=== PATIENT | male | born 1985 | race Caucasian/White ===

== ENCOUNTER 2016-05-01 10:15 | Emergency (ER) | payer SELFPAY ==
--- NOTE | 2016-05-01 12:30 | UC ---
FLU HPI - HPI Summary HPI Summary: GIRLFRIEND AND CHILD HAVE HAD FLU AND PNEUMONIA FOR FOUR DAYS. YESTERDAY BEGAN FEELING FEVER AND COUGH AND MUSCLE ACHES. - History of Current Complaint Chief Complaint: UCRespiratory Stated Complaint: FEVER COUGH SOB Time Seen by Provider: 05/01/16 10:49 Hx Obtained From: Patient Onset/Duration: Sudden Onset, Lasting Days, Still Present Severity Currently: Moderate Severity Initially: Moderate Associated Signs & Symptoms: Positive: Fever, F/C, Myalgia, Cough, Nasal Congestion Related Hx: Possible Flu/Infectious Exposure - Allergy/Home Medications Allergies/Adverse Reactions: Allergies Allergy/AdvReac Type Severity Reaction Status Date / Time No Known Allergies Allergy Verified 05/01/16 10:51 PMH/Surg Hx/FS Hx/Imm Hx Previously Healthy: Yes Endocrine History Of: Denies: Diabetes, Thyroid Disease Cardiovascular History Of: Denies: Cardiac Disorders, Hypertension Respiratory History Of: Denies: COPD Comment Only: Asthma - NO meds GI/ History Of: Denies: Ulcer - Surgical History Surgical History: None - Family History Known Family History: Positive: Other - GIRLFRIEND AND CHILD HAVE INFLUENZA Negative: Respiratory Disease - Social History Occupation: Employed Full-time Lives: With Family Alcohol Use: Weekly Substance Use Type: None Smoking Status (MU): Heavy Every Day Tobacco Smoker Amount Used/How Often: 1 pck per day Cessation Counseling: Patient Advised to Stop Review of Systems Constitutional: Fever, Chills Skin: Negative Eyes: Negative ENT: Negative Respiratory: Negative Cardiovascular: Negative Gastrointestinal: Negative Genitourinary: Negative Motor: Negative Neurovascular: Negative Musculoskeletal: Negative Neurological: Negative Psychological: Negative All Other Systems Reviewed And Are Negative: Yes Physical Exam Triage Information Reviewed: Yes Appearance: Well-Appearing, Well-Nourished, Pain Distress Vital Signs: Initial Vital Signs Temp 98.0 F 05/01/16 10:44 Pulse 106 05/01/16 10:44 Resp 20 05/01/16 10:44 BP 134/76 05/01/16 10:44 Pulse Ox 97 05/01/16 10:44 Vital Signs Reviewed: Yes Eye Exam: Normal ENT Exam: Normal ENT: Positive: Pharynx normal, Nasal congestion, TM dull Dental Exam: Normal Neck exam: Normal Neck: Positive: Supple, Nontender, No Lymphadenopathy Respiratory Exam: Normal Respiratory: Positive: Chest non-tender, Lungs clear, Normal breath sounds, No respiratory distress, No accessory muscle use Cardiovascular Exam: Normal Cardiovascular: Positive: RRR, No Murmur, Pulses Normal, Brisk Capillary Refill Abdominal Exam: Normal Abdomen Description: Positive: Nontender, No Organomegaly, Soft Musculoskeletal Exam: Normal Musculoskeletal: Positive: Strength Intact, ROM Intact Neurological Exam: Normal Psychological Exam: Normal Psychological: Positive: Normal Response To Family Skin Exam: Normal Flu Course/Dx - Differential Dx/Diagnosis Differential Diagnosis/HQI/PQRI: Influenza, Upper Respiratory Infection Provider Diagnoses: INFLUENZA Discharge - Discharge Plan Condition: Stable Disposition: HOME Prescriptions: Oseltamivir CAP* [Tamiflu CAP*] 75 mg PO BID #10 cap Patient Education Materials: Influenza (ED) Forms: *Work Release Referrals: [facility] [Outside] No Primary Care Phys,NOPCP [Primary Care Provider] -
== END 2016-05-01 12:26 | disposition home or self-care (01) ==
LOC: UCEAST 10:15
DX: J11.1 Influenza due to unidentified influenza virus with other respiratory manifestations (principal); F17.210 Nicotine dependence, cigarettes, uncomplicated
CPT/HCPCS: 87502; 99202; G0463

== ENCOUNTER 2017-06-28 08:04 | Emergency (ER) | payer SELFPAY ==
[2017-06-28 08:16] VITALS: BP 146/81
--- NOTE | 2017-06-28 08:52 | RAD ---
HISTORY: Right lateral ankle pain, inversion injury COMPARISONS: None VIEWS: 3, Frontal, lateral, and oblique views of the right ankle FINDINGS: BONE DENSITY: Normal. BONES: There is no displaced fracture. JOINTS: There is no arthropathy. ALIGNMENT: There is no dislocation. SOFT TISSUES: There is circumferential soft tissue swelling. OTHER FINDINGS: None. IMPRESSION: SOFT TISSUE SWELLING. NO ACUTE OSSEOUS INJURY. IF SYMPTOMS PERSIST, RECOMMEND REPEAT IMAGING.
--- NOTE | 2017-06-28 12:07 | UC ---
Saritha Reyes Emily, scribed for Lurdes Mejia DO on 06/28/17 at 0827 . Lower Extremity/Ankle HPI - HPI Summary HPI Summary: This patient is a 31 year old M presenting to [facility] with a chief complaint of R ankle pain that began yesterday. Pt reports rolling his ankle while playing soccer with his children yesterday. The patient rates the pain 6/ 10 in severity. Symptoms aggravated by ambulation. Symptoms alleviated by nothing. Patient denies numbness, weakness, tingling, CP, SOB, rash, and skin diaphoresis. - History of Current Complaint Chief Complaint: UCLowerExtremity Stated Complaint: ANKLE INJURY Time Seen by Provider: 06/28/17 08:20 Hx Obtained From: Patient Onset/Duration: Sudden Onset, Lasting Days, Still Present Severity Initially: Moderate Severity Currently: Moderate Pain Intensity: 6 Pain Scale Used: 0-10 Numeric Aggravating Factor(s): Ambulation Alleviating Factor(s): Nothing Able to Bear Weight: Yes - Allergies/Home Medications Allergies/Adverse Reactions: Allergies Allergy/AdvReac Type Severity Reaction Status Date / Time No Known Allergies Allergy Verified 06/28/17 08:16 Home Medications: Home Medications NK [No Home Medications Reported] 06/28/17 [History Confirmed 06/28/17] PMH/Surg Hx/FS Hx/Imm Hx Previously Healthy: Yes Endocrine History: Other Other Endocrine History: Negative diabetes Cardiovascular History: Other Other Cardiovascular History: Negative HTN - Surgical History Surgical History: None - Family History Known Family History: Positive: Hypertension Negative: Respiratory Disease - Social History Occupation: Unemployed Lives: With Family Alcohol Use: None Substance Use Type: None Smoking Status (MU): Heavy Every Day Tobacco Smoker Amount Used/How Often: 1/2 pck per day Review of Systems Skin: Other - Negative rash and diaphoresis Respiratory: Other - Negative SOB Cardiovascular: Other - Negative CP Musculoskeletal: Other: - Positive R ankle pain Neurological: Other - Negative numbness, weakness, and tingling All Other Systems Reviewed And Are Negative: Yes Physical Exam - Summary Physical Exam Summary: Appearance: Well-Appearing, No Pain Distress, Well-Nourished Eyes: conjunctiva clear, no discharge ENT: Hearing grossly normal, no muffled/hoarse voice. Hearing grossly normal, normal voice. Neck: Normal, Supple Respiratory/Lung Sounds: Lungs clear, Normal breath sounds, No respiratory distress, No accessory muscle use Cardiovascular: RRR, No murmur Abdomen (if she checks): Nontender, Soft, no guarding, not distended Bowel Sounds (if she checks): Present Musculoskeletal: Some swelling over lateral malleolus, tender over the posterior , inferior, and anterior ligaments of the lateral malleolus. Neurological: Alert, muscle tone normal Psychiatric: Normal, age appropriate behavior Skin: Normal, Warm, Dry, Normal color Triage Information Reviewed: Yes Vital Signs: Initial Vital Signs Temp 98.8 F 06/28/17 08:10 Pulse 79 06/28/17 08:10 Resp 16 06/28/17 08:10 BP 146/81 06/28/17 08:10 Pulse Ox 99 06/28/17 08:10 Vital Signs Reviewed: Yes Diagnostics - Radiology Ankle XR Radiology Interpretation Completed By: Radiologist - Ankle XR reveals, per radiologist, soft tissue swelling. No acute osseous injury. If symptoms persist , recommend repeat imaging. ED physician has reviewed this radiology report. Lower Extremity Course/Dx - Course Course Of Treatment: Patient will be discharged with follow up from PCP. The patient is agreeable with this plan. Medications reviewed. Allergies reviewed. High blood pressure noted and likely due to patient's condition. The patient has been encouraged to quit smoking. - Differential Dx/Diagnosis Provider Diagnoses: Ankle sprain. Elevated blood pressure without diagnosis of hypertension Discharge - Sign-Out/Discharge Documenting (check all that apply): Discharge/Admit/Transfer - Discharge home - Discharge Plan Condition: Stable Disposition: HOME Patient Education Materials: Ankle Sprain (ED) Forms: *Work Release Referrals: [facility] [Outside] Additional Instructions: USE THE SPLINTING EQUIPMENT AND CRUTCHES YOU HAVE AT HOME TO SUPPORT AND PROTECT YOUR ANKLE IT HEALS. FOLLOW-UP CARE: You should establish with a private physician for follow-up care 5-7 days. If you are unable to get a timely appointment, or if you are worsening, call us or return for re-evaluation. An additional resource available to assist in finding the appropriate physician for your health care needs is the Physician Referral Center. You may contact them by calling [phone]. The documentation as recorded by the Saritha vasquez Emily accurately reflects the service I personally performed and the decisions made by , Lurdes Mejia DO.
== END 2017-06-28 09:20 | disposition home or self-care (01) ==
LOC: UCEAST 08:04
DX: S93.401A Sprain of unspecified ligament of right ankle, initial encounter (principal); X58.XXXA Exposure to other specified factors, initial encounter; Y93.66 Activity, soccer; Y92.39 Other specified sports and athletic area as the place of occurrence of the external cause; F17.210 Nicotine dependence, cigarettes, uncomplicated
CPT/HCPCS: 99211; G0463

== ENCOUNTER 2018-07-12 10:03 | Emergency (ER) | payer OTHER ==
[2018-07-12 10:22] VITALS: BP 128/82
--- NOTE | 2018-07-12 11:11 | ED ---
Skin Complaint - HPI Summary HPI Summary: 32 yr old with the complaint of cellulites to the lower left abdomen. Onset of symptoms two days ago. The Patient has had redness and some swelling. No fever or chills. He does not feel sick. He has prior abscess with i and d in the past. He has no other complaints. - History of Current Complaint Chief Complaint: UCSkin Time Seen by Provider: 07/12/18 10:55 Stated Complaint: BOIL ON STOMACH Pain Intensity: 7 - Allergy/Home Medications Allergies/Adverse Reactions: Allergies Allergy/AdvReac Type Severity Reaction Status Date / Time No Known Allergies Allergy Verified 07/12/18 10:22 PMH/Surg Hx/FS Hx/Imm Hx Endocrine/Hematology History: Denies: Hx Diabetes, Hx Thyroid Disease Cardiovascular History: Denies: Hx Hypertension Respiratory History: Denies: Hx Asthma, Hx Chronic Obstructive Pulmonary Disease (COPD) GI History: Denies: Hx Ulcer Infectious Disease History: No Infectious Disease History: Denies: Hx Hepatitis, Hx Human Immunodeficiency Virus (HIV), Traveled Outside the in Last 30 Days - Family History Known Family History: Positive: Hypertension, Other - GIRLFRIEND AND CHILD HAVE INFLUENZA Negative: Respiratory Disease - Social History Occupation: Employed Full-time Alcohol Use: Occasionally Substance Use Type: Reports: None Smoking Status (MU): Heavy Every Day Tobacco Smoker Amount Used/How Often: 1/2 pck per day Review of Systems Constitutional: Negative Positive: Other - cellulites to the left lower abdominal wall All Other Systems Reviewed And Are Negative: Yes Physical Exam Triage Information Reviewed: Yes Vital Signs On Initial Exam: Initial Vitals Temp Pulse Resp BP Pulse Ox 98 F 95 19 128/82 99 07/12/18 10:18 07/12/18 10:18 07/12/18 10:18 07/12/18 10:18 07/12/18 10:18 Vital Signs Reviewed: Yes Appearance: Positive: Well-Appearing, No Pain Distress Skin: Positive: Other - cellulitis left lower abdominal wall. No fluctuance. He has an area about 8 inches by 6 inches in his pannus. Head/Face: Positive: Normal Head/Face Inspection Eyes: Positive: EOMI ENT: Positive: Normal ENT inspection Neck: Positive: Nontender Respiratory/Lung Sounds: Positive: Clear to Auscultation, Breath Sounds Present Cardiovascular: Positive: RRR. Negative: Murmur Abdomen Description: Positive: Nontender Musculoskeletal: Positive: Strength/ROM Intact Neurological: Positive: Sensory/Motor Intact, Alert, Oriented to Person Place, Time, CN Intact II-III Psychiatric: Positive: Normal Diagnostics - Vital Signs Vital Signs Temp Pulse Resp BP Pulse Ox 07/12/18 10:18 98 F 95 19 128/82 99 - Laboratory Lab Statement: Any lab studies that have been ordered have been reviewed, and results considered in the medical decision making process. Course/Dx - Course Course Of Treatment: 32 yr old with cellulitis to the pannus. Rx bactrim DS. No abscess at this point. The patient will go to the ER for any fever, chills or if he feels ill. - Diagnoses Provider Diagnoses: Abdominal wall cellulitis Discharge - Sign-Out/Discharge Documenting (check all that apply): Patient Departure All imaging exams completed and their final reports reviewed: No Studies - Discharge Plan Condition: Good Disposition: HOME Prescriptions: Sulfamethox/Trimethoprim DS* [Bactrim DS 800/160 TAB*] 1 tab PO BID #20 tab Patient Education Materials: Cellulitis (ED) Referrals: No Primary Care Phys,NOPCP [Primary Care Provider] - [facility] [Outside] - 2 Days - Billing Disposition and Condition Condition: GOOD Disposition: Home
== END 2018-07-12 11:09 | disposition home or self-care (01) ==
LOC: UCEAST 10:03
DX: L03.311 Cellulitis of abdominal wall (principal); Z87.2 Personal history of diseases of the skin and subcutaneous tissue; F17.210 Nicotine dependence, cigarettes, uncomplicated
CPT/HCPCS: 99212; G0463

== ENCOUNTER 2018-11-22 11:37 | Emergency (ER) | payer OTHER ==
[2018-11-22 12:13] VITALS: BP 125/73
[2018-11-22] MEDS ORDERED: Ibuprofen TAB* 600 MG PO ONE (12:39)
--- NOTE | 2018-11-22 12:44 | UC ---
Back Pain HPI - HPI Summary HPI Summary: 33-year-old male comes in with a chief complaint of low back pain. This started yesterday when he was lifting a box at work. Had sudden onset of pain in the mid low back. No radiation down the legs no weakness or numbness or difficulty controlling urine or bowels. Pain is worse with activity twisting turning and bending. Is having a difficult time sleeping last night secondary to the pain. Today when he went back to work he was continued pain and therefore came here. - History of Current Complaint Chief Complaint: UCBackPain Stated Complaint: BACK INJURY Time Seen by Provider: 11/22/18 12:28 Pain Intensity: 7 - Allergies/Home Medications Allergies/Adverse Reactions: Allergies Allergy/AdvReac Type Severity Reaction Status Date / Time No Known Allergies Allergy Verified 11/22/18 12:13 PMH/Surg Hx/FS Hx/Imm Hx Previously Healthy: Yes - Surgical History Surgical History: None - Family History Known Family History: Positive: Hypertension, Other - GIRLFRIEND AND CHILD HAVE INFLUENZA Negative: Respiratory Disease - Social History Alcohol Use: None Substance Use Type: None Smoking Status (MU): Heavy Every Day Tobacco Smoker Amount Used/How Often: 1/2 pck per day Review of Systems All Other Systems Reviewed And Are Negative: Yes Constitutional: Positive: Negative Skin: Positive: Negative Eyes: Positive: Negative ENT: Positive: Negative Respiratory: Positive: Negative Cardiovascular: Positive: Negative Gastrointestinal: Positive: Negative Genitourinary: Positive: Negative Motor: Positive: Other - SEE HPI Neurovascular: Positive: Negative Musculoskeletal: Positive: Other: - SEE HPI Neurological: Positive: Negative Psychological: Positive: Negative Is Patient Immunocompromised?: No Physical Exam Triage Information Reviewed: Yes Appearance: Well-Appearing, Well-Nourished, Pain Distress - MILD WITH ROM Vital Signs: Initial Vital Signs Temp 97.6 F 11/22/18 12:10 Pulse 81 11/22/18 12:10 Resp 12 11/22/18 12:10 BP 125/73 11/22/18 12:10 Pulse Ox 99 11/22/18 12:10 Vital Signs Reviewed: Yes Eye Exam: Normal Eyes: Positive: Conjunctiva Clear Neck: Positive: Supple Respiratory: Positive: No respiratory distress Musculoskeletal: Positive: Other: - Tender to palpation mid lumbar spine. No tenderness to palpation down into the buttocks. Both legs have full range of motion full-strength normal sensation. 1+ bilateral patellar reflexes. Increased low back pain with hip flexion on the right and left. Neurological: Positive: Alert Psychological: Positive: Age Appropriate Behavior Skin Exam: Normal Back Pain Course/Dx - Course Course Of Treatment: No focal neurologic deficit on examination or by history. We'll treat with ibuprofen lidocaine patch and Flexeril as needed. Follow-up with occupational medicine or sports medicine. The patient know if he had any neurologic deficits or worsening of symptoms he needs to get reevaluated again right away. - Differential Dx/Diagnosis Provider Diagnosis: Low back pain Discharge ED - Sign-Out/Discharge Documenting (check all that apply): Patient Departure All imaging exams completed and their final reports reviewed: No Studies - Discharge Plan Condition: Stable Disposition: HOME Prescriptions: Cyclobenzaprine TAB* [Flexeril 10 MG TAB*] 10 mg PO TID PRN #15 tab PRN Reason: Pain - Moderate Ibuprofen TAB* [Motrin TAB* 600 MG] 600 mg PO Q6H PRN #30 tab PRN Reason: Pain - Moderate Lidocaine PATCH 5%* [Lidoderm 5% Patch*] 2 patch TRANSDERM DAILY #20 patch Patient Education Materials: Acute Low Back Pain (ED), Lower Back Exercises (ED ) Forms: *Work Release Referrals: Baltazar Morrissey MD [Medical Doctor] - [facility] [Provider Group] Additional Instructions: FOLLOW UP WITH DR MORRISSEY, OCCUPATIONAL MEDICINE, OR SPORTS MEDICINE. GET RECHECKED SOONER IF YOUR CONDITION WORSENS; PAIN, WEAKNESS, NUMBNESS, DIFFICULTY CONTROLLING BOWEL OR BLADDER OR ANY QUESTIONS OR CONCERNS. - Billing Disposition and Condition Condition: STABLE Disposition: Home
== END 2018-11-22 12:54 | disposition home or self-care (01) ==
LOC: UCEAST 11:37
DX: M54.5 Low back pain (principal); F17.210 Nicotine dependence, cigarettes, uncomplicated
CPT/HCPCS: 99212; A9270-GY; G0463